=== PATIENT | male | born 1965 | race Caucasian/White ===

== ENCOUNTER 2018-01-28 16:55 | Emergency (ER) | payer OTHER ==
[~2018-01-28] VITALS: Ht 185.4 cm; Wt 83.7 kg
[2018-01-28] MEDS ORDERED: PROCHLORPERAZINE 10 MG/2 ML VIAL. ONE (17:25)
[2018-01-28] MEDS ORDERED: HYDROmorphone PF 1 MG/ML DISP.SYRIN ONE (17:25)
--- NOTE | 2018-01-28 17:41 | PHYS DOC ---
Adult General Chief Complaint Chief Complaint: TESTICULAR PAIN OR INJURY HPI HPI 52-year-old male presents with right testicle pain. The patient just came to [facility] from [place] yesterday. Today he was sitting in class and he began having increasing right testicle pain. He is extremely to any touch. He denies any dysuria or urethral discharge. The patient has had this 3 times in the past. He has had 3 cysts removed, 2 from the left testicle, and one from the right. They were reported to be benign, but they're unsure why they keep recurring. He denies fever or chills. Review of Systems Review of Systems Constitutional: Denies fever or chills [] Eyes: Denies change in visual acuity, redness, or eye pain [] HENT: Denies nasal congestion or sore throat [] Respiratory: Denies cough or shortness of breath [] Cardiovascular: No additional information not addressed in HPI [] GI: Denies abdominal pain, nausea, vomiting, bloody stools or diarrhea [] : Denies dysuria or hematuria, severe testicle pain [] Musculoskeletal: Denies back pain or joint pain [] Integument: Denies rash or skin lesions [] Neurologic: Denies headache, focal weakness or sensory changes [] Endocrine: Denies polyuria or polydipsia [] All other systems were reviewed and found to be within normal limits, except as documented in this note. Current Medications Current Medications Current Medications Medications (Trade) Dose Ordered Sig/Benjamin Start Time Stop Time Status Last Admin Dose Admin Hydromorphone HCl (Dilaudid) 1 mg STK-MED ONCE 01/28/18 17:25 01/28/18 17:26 DC Prochlorperazine Edisylate (Compazine) 10 mg 1X ONCE 01/28/18 17:45 01/28/18 17:46 Allergies Allergies Allergies Coded Allergies Type Severity Reaction Last Updated Verified No Known Drug Allergies 01/28/18 No Physical Exam Physical Exam Constitutional: Well developed, well nourished, no acute distress, non-toxic appearance. [] HENT: Normocephalic, atraumatic, bilateral external ears normal, oropharynx moist, no oral exudates, nose normal. [] Eyes: PERRLA, EOMI, conjunctiva normal, no discharge. [] Neck: Normal range of motion, no tenderness, supple, no stridor. [] Cardiovascular:Heart rate regular rhythm, no murmur [] Lungs & Thorax: Bilateral breath sounds clear to auscultation [] Abdomen: Bowel sounds normal, soft, no tenderness, no masses, no pulsatile masses. [] Skin: Warm, dry, no erythema, no rash. [] Back: No tenderness, no CVA tenderness. [] Extremities: No tenderness, no cyanosis, no clubbing, ROM intact, no edema. [] Neurologic: Alert and oriented X 3, normal motor function, normal sensory function, no focal deficits noted. [] Psychologic: Affect normal, judgement normal, mood normal. : Swollen right testicle. Extreme pain with any palpation. No erythema [] Current Patient Data Vital Signs Vital Signs Date Time Temp Pulse Resp B/P (MAP) Pulse Ox O2 Delivery O2 Flow Rate FiO2 01/28/18 18:08 91 16 119/71 (87) 97 Room Air 01/28/18 16:55 98.2 Lab Results Laboratory Tests Test 01/28/18 17:40 White Blood Count 6.6 x10^3/uL Red Blood Count 4.52 x10^6/uL Hemoglobin 14.5 g/dL Hematocrit 40.7 % Mean Corpuscular Volume 90 fL Mean Corpuscular Hemoglobin 32 pg Mean Corpuscular Hemoglobin Concent 36 g/dL Red Cell Distribution Width 12.9 % Platelet Count 206 x10^3/uL Neutrophils (%) (Auto) 77 % Lymphocytes (%) (Auto) 15 % Monocytes (%) (Auto) 8 % Eosinophils (%) (Auto) 0 % Basophils (%) (Auto) 0 % Neutrophils # (Auto) 5.1 x10^3uL Lymphocytes # (Auto) 1.0 x10^3/uL Monocytes # (Auto) 0.5 x10^3/uL Eosinophils # (Auto) 0.0 x10^3/uL Basophils # (Auto) 0.0 x10^3/uL Sodium Level 137 mmol/L Potassium Level 3.5 mmol/L Chloride Level 101 mmol/L Carbon Dioxide Level 26 mmol/L Anion Gap 10 Blood Urea Nitrogen 15 mg/dL Creatinine 1.2 mg/dL Estimated GFR (Cockcroft-Gault) 64.1 Glucose Level 91 mg/dL Calcium Level 8.6 mg/dL Current Medications Medications (Trade) Dose Ordered Sig/Benjamin Route PRN Reason Start Time Stop Time Status Last Admin Dose Admin Prochlorperazine Edisylate (Compazine) 10 mg STK-MED ONCE .ROUTE 01/28/18 17:25 01/28/18 17:26 DC Prochlorperazine Edisylate (Compazine) 10 mg 1X ONCE IV 01/28/18 17:45 01/28/18 17:46 DC 01/28/18 17:35 Hydromorphone HCl (Dilaudid) 1 mg 1X ONCE IV 01/28/18 17:45 01/28/18 17:46 DC 01/28/18 17:36 Hydromorphone HCl (Dilaudid) 1 mg STK-MED ONCE .ROUTE 01/28/18 17:25 01/28/18 17:26 DC Ketorolac Tromethamine (Toradol) 30 mg 1X ONCE IV 01/28/18 18:30 01/28/18 18:31 DC 01/28/18 18:21 EKG EKG Not performed[] Radiology/Procedures Radiology/[place] [address] IMAGING REPORT Signed PATIENT: VIJAYA ROCHA ACCOUNT: [id number] : 1965 LOCATION: ER AGE: 52 SEX: M EXAM STATUS: REG ER ORD. PHYSICIAN: EUN ENAMORADO DO REASON: rule out testicular torsion, RT TESTICULAR PAIN PROCEDURE: TESTICULAR/SCROTUM EXAM: Scrotal sonogram with Doppler. HISTORY: Right testicular pain. FINDINGS: Sonographic evaluation of the scrotum and contents was performed with Doppler.. The right testicle measures 5.0 x 3.6 x 1.9 cm. The parenchyma is homogeneous without focal lesions. A cyst in the right epididymal head measures 1.1 x 0.9 cm and appears benign. Testicular and epididymal flow appear normal. There is no significant hydrocele. The left testicle measures 3.5 x 3.2 x 2.7 cm. The parenchyma is homogeneous without focal lesions. The epididymis is unremarkable. Internal flow appears normal. There is no significant hydrocele. IMPRESSION: 1. No clear cause for pain is identified currently. Ongoing follow-up is recommended. Electronically signed by: Drake Nieto MD (01/28/2018 6:19 PM) [facility] DICTATED AND SIGNED BY: MICHEAL NIETO MD DATE: 01/28/181815 CC: EUN ENAMORADO DO; JONNY ALBA MD; PCP,NO ~ [] Course & Med Decision Making Course & Med Decision Making Pertinent Labs and Imaging studies reviewed. (See chart for details) Addendum by Dr. Jonny Alba at 2028: Ultrasound of the patient's testicle negative for acute pathology. The patient's urinalysis showed evidence of hematuria. I explained to the patient that this may be a sign patient could have a distal ureteral stone which could be causing the patient's symptoms and recommended that the patient undergo CT imaging. The patient stated that he did not want to do this and stated he is convinced that the cause of pain is testicular and likely due to cyst formation. The patient was noted to have a small epididymal cyst which at this time is thought not necessarily to be the lone cause of the patient's symptoms without further workup. I explained to the patient that the presence of a ureteral stone undetected could result in worsening of his condition and could even lead to worsening problems including kidney failure, sepsis, or possibly . The patient voiced understanding of this and stated he did not want any further workup and wanted to leave the emergency department AGAINST MEDICAL ADVICE. Patient was provided with prescriptions for Cipro, ibuprofen, and [place] to help with symptoms however he does voice understanding that this may not be adequate treatment for his current condition may worsen. Patient signed out of the emergency department AGAINST MEDICAL ADVICE. Recommended close follow-up with primary doctor and recommended CT imaging be done as outpatient within the next 24-48 hours. Dragon Disclaimer Dragon Disclaimer This electronic medical record was generated, in whole or in part, using a voice recognition dictation system. Departure Departure: Impression: Primary Impression: Testicular pain, right Additional Impression: Hematuria Disposition: AGAINST MEDICAL ADVICE Condition: STABLE Referrals: PCP,NO (PCP) Patient Instructions: Hematuria, Adult, Testicular Problems and Self-Exam Additional Instructions: He has chosen to leave the emergency department today without your workup being completed. Your ultrasound did not show obvious pathology accounting for your testicular pain. It is concerning that you have blood in her urine without receiving a full workup as this may be a sign that you could have a kidney stone. Failure to diagnosis could result in worsening of your condition or could lead to other problems including kidney failure, severe infection, and possibly . Please follow-up as soon as possible with your primary doctor as I do believe he needs to have a CT scan to rule out a kidney stone before focusing treatment on possible epididymitis or other cause. Return to the emergency department for any worsening symptoms. Scripts Hydrocodone Bit/Acetaminophen (NORCO 5-325 TABLET) 1 Each Tablet 1-2 TAB PO Q4-6HRS, #20 TAB Prov: JONNY ALBA MD 01/28/18 Ibuprofen (IBUPROFEN) 600 Mg Tablet 600 MG PO Q6HRS PRN for PAIN, #30 TAB Prov: JONNY ALBA MD 01/28/18 Ciprofloxacin Hcl (CIPRO) 500 Mg Tablet 1 TAB PO BID, #20 TAB Prov: JONNY ALBA MD 01/28/18 Problem Qualifiers Additional Impression: Hematuria Hematuria type: unspecified type Qualified Codes: R31.9 - Hematuria, unspecified EUN ENAMORADO DO Jan 28, 2018 17:41 JONNY ALBA MD Jan 28, 2018 18:36
[2018-01-28] MEDS ORDERED: PROCHLORPERAZINE 10 MG/2 ML VIAL. IV ONE (17:45)
[2018-01-28] MEDS ORDERED: HYDROmorphone PF 1 MG/ML DISP.SYRIN IV ONE (17:45)
[2018-01-28 18:00] LABS: BASO % 0 % (0-3); EOS % 0 % (0-3); HEMATOCRIT 40.7 % (39.0-53.0); HEMOGLOBIN 14.5 g/dL (13.0-17.5); LYMPH % 15 % (24-48); MEAN CORPUSCULAR HEMOGLOBIN 32 pg (25-35); MEAN CORPUSCULAR HGB CONC 36 g/dL (31-37); MEAN CORPUSCULAR VOLUME 90 fL (79-100); MONO # 0.5 x10^3/uL (0.0-1.1); MONO % 8 % (0-9); NEUT # 5.1 x10^3uL (1.8-7.7); NEUT % 77 % (31-73); PLATELET COUNT 206 x10^3/uL (140-400); RED BLOOD COUNT 4.52 x10^6/uL (4.30-5.70); RED CELL DISTRIBUTION WIDTH 12.9 % (11.5-14.5); WHITE BLOOD COUNT 6.6 x10^3/uL (4.0-11.0)
[2018-01-28 18:08] VITALS: BP 119/71
[2018-01-28 18:15] LABS: CALCIUM 8.6 mg/dL (8.5-10.1); CREATININE 1.2 mg/dL (0.7-1.3); GFR 64.1; POTASSIUM 3.5 mmol/L (3.5-5.1)
--- NOTE | 2018-01-28 18:23 | RAD ---
EXAM: Scrotal sonogram with Doppler. HISTORY: Right testicular pain. FINDINGS: Sonographic evaluation of the scrotum and contents was performed with Doppler.. The right testicle measures 5.0 x 3.6 x 1.9 cm. The parenchyma is homogeneous without focal lesions. A cyst in the right epididymal head measures 1.1 x 0.9 cm and appears benign. Testicular and epididymal flow appear normal. There is no significant hydrocele. The left testicle measures 3.5 x 3.2 x 2.7 cm. The parenchyma is homogeneous without focal lesions. The epididymis is unremarkable. Internal flow appears normal. There is no significant hydrocele. IMPRESSION: 1. No clear cause for pain is identified currently. Ongoing follow-up is recommended. Electronically signed by: Drake Nieto MD (01/28/2018 6:19 PM) [facility]
[2018-01-28] MEDS ORDERED: KETOROLAC 30 MG/ML VIAL. IV ONE (18:30)
[2018-01-28 19:38] LABS: BACTERIA,URINE 0 /HPF (0-FEW); BILIRUBIN,URINE NEG (NEG); CLARITY,URINE CLEAR; COLOR,URINE YELLOW; GLUCOSE,URINE NEG (NEG); NITRITE,URINE NEG (NEG); SQUAMOUS EPITHELIAL CELL,UR FEW /LPF; UROBILINOGEN,URINE 0.2 mg/dL (0.2 mg/dL); WBC,URINE OCC /HPF (0-4)
[2018-01-28] MEDS ORDERED: HYDR-971 PO (20:11)
[2018-01-28] MEDS ORDERED: CIPR500T94 PO (20:11)
[2018-01-28] MEDS ORDERED: IBUP600T16 PO (20:11)
== END 2018-01-28 20:08 | disposition left against medical advice (07) ==
LOC: ER 16:55
DX: N50.811 Right testicular pain (principal); R31.9 Hematuria, unspecified
CPT/HCPCS: 36415; 76870; 80048; 81001; 85025; 96374; 96375; 99285; J0780; J1170; J1885

== ENCOUNTER 2018-02-01 11:07 | Emergency (ER) | payer OTHER ==
[~2018-02-01] VITALS: Ht 185.4 cm; Wt 83.7 kg
[~2018-02-01 11:07] MED LIST: CIPR500T94 PO; HYDR-971 PO; IBUP600T16 PO
[2018-02-01] MEDS ORDERED: KETOROLAC 15 MG/ML VIAL. IV ONE (11:30)
[2018-02-01] MEDS ORDERED: MORPHINE SULFATE 4 MG/ML DISP.SYRIN. IV ONE (11:30)
--- NOTE | 2018-02-01 11:32 | PHYS DOC ---
Past History Past Medical History: Other Past Surgical History: Other Alcohol Use: None Drug Use: None Adult General Chief Complaint Chief Complaint: FLANK PAIN [facility] HPI Patient is a 52-year-old male who is visiting from [place] complaining of right groin and right testicular pain for the last 3 or 4 days. Patient says it is a dull pain he was seen in the emergency room couple of days ago he had a testicular ultrasound that was essentially within normal limits at [place] very small epididymal cyst that was not thought to be the cause of the patient's pain CT scan abdomen and pelvis was recommended due to hematuria but the patient declined because he had TO GO. Currently his pain is increasing with time it is worsening despite [place] which he has completed. No prior history of kidney stone no fever no vomiting Review of Systems Review of Systems Constitutional: Denies fever or chills [] Eyes: Denies change in visual acuity, redness, or eye pain [] HENT: Denies nasal congestion or sore throat [] Respiratory: Denies cough or shortness of breath [] Cardiovascular: No additional information not addressed in HPI [] : Denies dysuria Musculoskeletal: Denies back pain or joint pain [] Integument: Denies rash or skin lesions [] All other systems were reviewed and found to be within normal limits, except as documented in this note. Allergies Allergies Allergies Coded Allergies Type Severity Reaction Last Updated Verified No Known Drug Allergies 01/28/18 No Physical Exam Physical Exam Constitutional: Well developed, well nourished, no acute distress, non-toxic appearance. [] HENT: Normocephalic, atraumatic, bilateral external ears normal, oropharynx moist, no oral exudates, nose normal. [] Eyes: PERRLA, EOMI, conjunctiva normal, no discharge. [] Neck: Normal range of motion, no tenderness, supple, no stridor. [] Cardiovascular:Heart rate regular rhythm, no murmur [] Lungs & Thorax: Bilateral breath sounds clear to auscultation [] Abdomen: Bowel sounds normal, soft, THERE IS TTP NOTED IN THE RIGHT LOWER QUADRANT AND GROIN AREA. Surgical incision noted in the right hemiscrotum no signs of infection there is tenderness to palpation of the testicle with extremely light palpation. No obvious swELLING OR INFECTION NOTED Skin: Warm, dry, no erythema, no rash. [] Back: No tenderness, no CVA tenderness. [] Extremities: No tenderness, no cyanosis, no clubbing, ROM intact, no edema. [] Neurologic: Alert and oriented X 3, normal motor function, normal sensory function, no focal deficits noted. [] Psychologic: Affect normal, judgement normal, mood normal. [] Current Patient Data Lab Results NOTED LABS PATIENT KNOWS ABOUT HEMATURIA AND HAS F/U WITH UROLOGY EKG EKG [] Radiology/Procedures Radiology/Procedures [] Impressions: IMPRESSION: No acute abnormality is identified in the abdomen and pelvis. Specifically, no evidence for obstructive uropathy. There is a superior endplate Schmorl's node involving L4. Electronically signed by: Linda Srivastava MD (02/01/2018 12:12 PM) [id number] Course & Med Decision Making Course & Med Decision Making Pertinent Labs and Imaging studies reviewed. (See chart for details) []Patient is a 52-year-old male visiting from [place] who is presenting with testicular pain he has a history of a cyst on the testicle in the past status post surgery Recent testicular ultrasound here was essentially within normal limits just a very small epididymal cyst which was unlikely to be leading to his pain. At this point time he had hematuria on recent urinalysis so we will do a non- con CT abdomen and pelvis to evaluate for ureteral stone. Morphine Toradol given in the ER AFTER TREATMENT, PAIN IS IMPROVED, short course prescription [place] was provided and patient has follow-up with urology on Sunday. No evidence of a kidney stone. There is a small epididymal cyst on a recent ultrasound this may be leading to some pain there also may be some postoperative scrotal pain. No evidence of acute pathology patient knows about the hematuria and the need for follow-up. Dragon Disclaimer Dragon Disclaimer This electronic medical record was generated, in whole or in part, using a voice recognition dictation system. Departure Departure: Impression: Primary Impression: Groin pain Disposition: HOME, SELF-CARE Condition: IMPROVED Referrals: PCP,UNKNOWN (PCP) Scripts Hydrocodone Bit/Acetaminophen (NORCO 5-325 TABLET) 1 Each Tablet 1-2 TAB PO Q4-6HRS, #10 TAB Prov: ADELINA GARCIA MD 02/01/18 ADELINA GARCIA MD Feb 01, 2018 11:32
[2018-02-01 11:58] LABS: BACTERIA,URINE 0 /HPF (0-FEW); BILIRUBIN,URINE NEG (NEG); CLARITY,URINE CLEAR; COLOR,URINE YELLOW; GLUCOSE,URINE NEG (NEG); NITRITE,URINE NEG (NEG); SQUAMOUS EPITHELIAL CELL,UR OCC /LPF; UROBILINOGEN,URINE 0.2 mg/dL (0.2 mg/dL); WBC,URINE 0 /HPF (0-4)
[2018-02-01 12:09] LABS: BASO % 0 % (0-3); EOS % 0 % (0-3); HEMATOCRIT 43.7 % (39.0-53.0); HEMOGLOBIN 15.6 g/dL (13.0-17.5); LYMPH # 1.7 x10^3/uL (1.0-4.8); LYMPH % 18 % (24-48); MEAN CORPUSCULAR HEMOGLOBIN 32 pg (25-35); MEAN CORPUSCULAR HGB CONC 36 g/dL (31-37); MEAN CORPUSCULAR VOLUME 91 fL (79-100); MONO # 0.7 x10^3/uL (0.0-1.1); MONO % 7 % (0-9); NEUT % 74 % (31-73); PLATELET COUNT 248 x10^3/uL (140-400); RED BLOOD COUNT 4.82 x10^6/uL (4.30-5.70); RED CELL DISTRIBUTION WIDTH 13.1 % (11.5-14.5); WHITE BLOOD COUNT 9.4 x10^3/uL (4.0-11.0)
--- NOTE | 2018-02-01 12:15 | RAD ---
PQRS Compliance Statement: One or more of the following individualized dose reduction techniques were utilized for this examination: 1. Automated exposure control 2. Adjustment of the mA and/or kV according to patient size 3. Use of iterative reconstruction technique CT abdomen/pelvis without contrast 02/01/2018 11:44 AM INDICATION: Bilateral flank pain. Hematuria. COMPARISON: None available TECHNIQUE: Multiple axial CT images of the abdomen and pelvis were obtained without intravenous contrast. Coronal and sagittal reformats are provided. FINDINGS: Visualized portions of the lung bases are clear. Heart size is within normal limits. Evaluation of the solid abdominal viscera is limited by lack of intravenous contrast. No suspicious hepatic masses are identified. Spleen, bilateral adrenal glands, and pancreas are normal in appearance. Calcification within the spleen may represent sequela prior granulomatous exposure. Gallbladder is present without adjacent inflammatory changes. The abdominal aorta is normal in course and caliber. There are no pathologically enlarged lymph nodes in the abdomen and pelvis. There is no abdominal free fluid. There is no free intraperitoneal air. The kidneys are relatively symmetric in appearance. There is no suspicious renal mass within the limitations of a noncontrast examination. There is no hydronephrosis. There are no calculi within the kidneys, ureters or urinary bladder. Small and large bowel are normal in caliber. Few colonic diverticula are present in the sigmoid colon. There is no evidence for bowel obstruction. There are no pericolonic inflammatory changes. A normal, nondilated appendix is visualized without adjacent inflammatory changes. The urinary bladder is within normal limits given degree of distention. Prostate and seminal vesicles are normal in appearance. No suspicious pelvic masses are identified. There are no suspicious osseous lesions identified. There is a superior endplate Schmorl's node involving L4. IMPRESSION: No acute abnormality is identified in the abdomen and pelvis. Specifically, no evidence for obstructive uropathy. There is a superior endplate Schmorl's node involving L4. Electronically signed by: Linda Srivastava MD (02/01/2018 12:12 PM) [id number]
[2018-02-01 12:20] LABS: ALBUMIN 3.8 g/dL (3.4-5.0); ALBUMIN/GLOBULIN RATIO 1.2 (1.0-1.7); CALCIUM 8.7 mg/dL (8.5-10.1); CREATININE 0.9 mg/dL (0.7-1.3); GFR 89.3; POTASSIUM 3.8 mmol/L (3.5-5.1); TOTAL BILIRUBIN 0.5 mg/dL (0.2-1.0); TOTAL PROTEIN 7.1 g/dL (6.4-8.2)
[2018-02-01] MEDS ORDERED: HYDR-971 PO (12:39)
[2018-02-01 12:45] VITALS: BP 141/70
== END 2018-02-01 12:47 | disposition home or self-care (01) ==
LOC: ER 11:07
DX: N50.3 Cyst of epididymis (principal); R10.31 Right lower quadrant pain; N50.811 Right testicular pain
CPT/HCPCS: 36415; 74176; 80053; 81001; 85025; 96374; 96375; 99285; J1885; J2270